=== PATIENT | male | born 1950 | race Caucasian/White ===

== ENCOUNTER 2019-01-07 11:08 | Inpatient (IN) | payer BC ==
[~2019-01-07] VITALS: Ht 172.7 cm; Wt 84.5 kg
[2019-01-07 11:23] LABS: EOSINOPHILS % (AUTO) 0.4 % (0.0-8.0); HEMATOCRIT 46.7 % (42-54); LYMPHOCYTES % (AUTO) 11.6 % (21.0-51.0); MEAN CORPUSCULAR HEMOGLOBIN 34.5 pg (27.0-33.0); MEAN CORPUSCULAR HGB CONC 33.3 g/dL (32.0-36.0); MEAN CORPUSCULAR VOLUME 103.7 fL (79-99); MONOCYTES % (AUTO) 6.4 % (3.0-13.0); NEUTROPHILS % (AUTO) 80.6 % (40.0-77.0); NUCLEATED RED BLOOD CELLS 0.1 % (0.0-0.19); PLATELET COUNT (AUTO) 193 K/uL (130-400); RED BLOOD CELL COUNT(AUTO) 4.51 MIL/uL (4.50-6.20); RED CELL DISTRIBUTION WIDTH 13.7 % (11.0-15.5); WHITE BLOOD COUNT (AUTO) 7.3 K/uL (4.8-10.8)
[2019-01-07 11:32] LABS: CREATININE 0.9 mg/dL (0.5-1.5); POTASSIUM 5.4 mmol/L (3.5-5.1)
[2019-01-07 11:52] LABS: ALBUMIN 3.5 g/dL (3.5-5.0); BILIRUBIN,TOTAL 0.9 mg/dL (0.2-1.0); TOTAL PROTEIN, SERUM 7.8 g/dL (6.0-8.3)
[2019-01-07] MEDS ORDERED: DILTIAZEM HCL 125 MG/25 ML VIAL IV ONE (11:52)
[2019-01-07] MEDS ORDERED: SODIUM CHLORIDE 0.9% 500ML 500 ML IV ONE (11:53)
[2019-01-07] MEDS ORDERED: SODIUM CHLORIDE 0.9% 100 ML IV ONE ×2 (11:53→13:37)
[2019-01-07 12:19] LABS: INR 0.95 (0.85-1.15); PARTIAL THROMBOPLASTIN TIME 28.2 SEC (26.3-35.5)
[2019-01-07] MEDS ORDERED: THIAMINE HCL 100 MG/ML 2ML VIAL ONE (13:36)
[2019-01-07 13:54] LABS: AMPHET/METH SCREEN,URINE NEGATIVE (NEGATIVE); BARBITURATE SCREEN, URINE NEGATIVE (NEGATIVE); BENZODIAZEPINES SCREEN,URINE NEGATIVE (NEGATIVE); CANNABINOID SCREEN,URINE NEGATIVE (NEGATIVE); COCAINE SCREEN,URINE NEGATIVE (NEGATIVE); OPIATE SCREEN,URINE NEGATIVE (NEGATIVE); PHENCYCLIDINE SCREEN,URINE NEGATIVE (NEGATIVE)
[2019-01-07] MEDS ORDERED: LORAZEPAM 2 MG/ML 1 ML VIAL ONE (14:24)
[2019-01-07] MEDS ORDERED: AMIODARONE HCL 50 MG/ML 3 ML VIAL ONE (15:17)
[2019-01-07] MEDS ORDERED: PHARMACY COMMUNICATION MISC PRN ×2 (16:15→16:45)
[2019-01-07] MEDS: THIAMINE HCL 100 MG, FOLIC ACID 1 MG, M.V.I. IV [ADULT] 10 ML in SODIUM CHLORIDE 0.9% 1... IV SCH ×2 (16:15→16:45)
[2019-01-07] MEDS ORDERED: CHLORDIAZEPOXIDE HCL 25 MG CAP PO PRN ×2 (16:15→16:45)
[2019-01-07] MEDS ORDERED: AMIODARONE HCL 900 MG in DEXTROSE 5%-WATER 500 ML IV SCH (16:15)
[2019-01-07] MEDS: SODIUM CHLORIDE 0.9% 1000ML 1,000 ML IV SCH ×2 (16:40→23:20)
[2019-01-07] MEDS ORDERED: AMIODARONE HCL 150 MG in DEXTROSE 5%-WATER 100 ML IV SCH (16:45)
[2019-01-07] MEDS ORDERED: ONDANSETRON HCL 4 MG/2 ML VIAL IV PRN (16:45)
[2019-01-07] MEDS ORDERED: LORAZEPAM 2 MG/ML 1 ML VIAL IVP PRN (16:45)
[2019-01-07] MEDS ORDERED: ACETAMINOPHEN 325 MG TAB PO PRN ×2 (16:45)
[2019-01-07] MEDS ORDERED: AMIODARONE HCL 150 MG in DEXTROSE 5%-WATER 100 ML IV PRN (16:45)
[2019-01-07] MEDS ORDERED: LACTULOSE 20 GM/30 ML UDCUP PO PRN (16:45)
[2019-01-07] MEDS ORDERED: SODIUM CHLORIDE 0.9% 1000ML 1,000 ML IV ONE ×2 (17:03→23:58)
[2019-01-07] MEDS ORDERED: ENOXAPARIN SODIUM 80 MG/0.8 ML SQ SCH ×2 (21:00)
[2019-01-07] MEDS: FAMOTIDINE/PF 20 MG/2 ML VIAL IV SCH (21:00)
[2019-01-08] MEDS ORDERED: SODIUM CHLORIDE 0.9% 100 ML IV ONE ×2 (01:34→11:24)
[2019-01-08] MEDS ORDERED: DILTIAZEM HCL 125 MG/25 ML VIAL IV ONE ×2 (01:34→11:24)
[2019-01-08] MEDS: SODIUM CHLORIDE 0.9% 1000ML 1,000 ML IV SCH (06:00)
[2019-01-08] MEDS ORDERED: ENOXAPARIN SODIUM 100 MG/1 ML SQ ONE (07:21)
[2019-01-08] MEDS ORDERED: SODIUM CHLORIDE 0.9% 1000ML 1,000 ML IV ONE (07:21)
[2019-01-08] MEDS ORDERED: CHLORDIAZEPOXIDE HCL 25 MG CAP ONE ×2 (07:40→09:47)
[2019-01-08] MEDS ORDERED: ONDANSETRON HCL 4 MG/2 ML VIAL ONE (07:45)
[2019-01-08] MEDS: FAMOTIDINE/PF 20 MG/2 ML VIAL IV SCH ×2 (09:00→20:35)
[2019-01-08] MEDS: FOLIC ACID 1 MG TABLET PO SCH (09:00)
[2019-01-08] MEDS: RIVAROXABAN 20 MG TABLET PO SCH (11:13)
[2019-01-08] MEDS ORDERED: LORAZEPAM 2 MG/ML 1 ML VIAL ONE ×3 (12:33→15:12)
[2019-01-08] MEDS: THIAMINE HCL 100 MG, FOLIC ACID 1 MG, M.V.I. IV [ADULT] 10 ML in SODIUM CHLORIDE 0.9% 1... IV SCH ×2 (16:15→17:53)
[2019-01-08 17:25] VITALS: BP 136/98
--- NOTE | 2019-01-08 17:26 | NUR ---
ARRIVAL TO FLOOR PT IS ALERT, STATES AND NAME BUT DOESN'T KNOW WHERE HE IS AT. PATIENT IS CALM. NOTED EMPTY BOTTLE OF LIQUOR IN BELONGINGS BAG. ALL BELONGINGS PLACED IN CLOSET. PCP AT BEDSIDE, SOFIA OPEN DOOR DENISE.
[2019-01-08] MEDS ORDERED: METO-409 PO (17:35)
[2019-01-08] MEDS ORDERED: METO-391 PO (17:35)
--- NOTE | 2019-01-08 17:47 | NUR ---
FRIENDS ARE AT BEDSIDE ASSISTING WITH ADMISSION QUESTIONARE. PATIENT IS CALM AT THIS TIME.
--- NOTE | 2019-01-08 17:47 | NUR ---
AMIODARONE GTT COMPLETED WITHIN MINUTES OF ARRIVAL TO FLOOR, ER NURSE STATES IT WAS STARTED 24 HRS AGO.
[2019-01-08] MEDS: DILTIAZEM HCL 125 MG/25 ML 125 MG in SODIUM CHLORIDE 0.9% 100 ML IV SCH (17:53)
[2019-01-08 19:59] VITALS: BP 138/92
[2019-01-08] MEDS ORDERED: LORAZEPAM 2 MG/ML 1 ML VIAL IVP PRN ×2 (20:00)
[2019-01-08] MEDS: AMIODARONE HCL 200 MG TABLET PO SCH (20:35)
[2019-01-08] MEDS: METOPROLOL TARTRATE 50 MG TAB PO SCH (20:35)
[2019-01-08 23:46] VITALS: BP 143/100
[2019-01-09] MEDS ORDERED: SODIUM CHLORIDE 0.9% 0 ML IV ONE (02:51)
[2019-01-09] MEDS: DILTIAZEM HCL 125 MG/25 ML 125 MG in SODIUM CHLORIDE 0.9% 100 ML IV SCH (03:05)
[2019-01-09 04:01] LABS: HEMATOCRIT 35.3 % (42-54); MEAN CORPUSCULAR HEMOGLOBIN 34.6 pg (27.0-33.0); MEAN CORPUSCULAR HGB CONC 33.6 g/dL (32.0-36.0); MEAN CORPUSCULAR VOLUME 103.1 fL (79-99); NUCLEATED RED BLOOD CELLS 0.1 % (0.0-0.19); PLATELET COUNT (AUTO) 117 K/uL (130-400); RED BLOOD CELL COUNT(AUTO) 3.43 MIL/uL (4.50-6.20); RED CELL DISTRIBUTION WIDTH 13.4 % (11.0-15.5); WHITE BLOOD COUNT (AUTO) 5.4 K/uL (4.8-10.8)
[2019-01-09 04:23] LABS: CREATININE 0.7 mg/dL (0.5-1.5); POTASSIUM 3.1 mmol/L (3.5-5.1)
--- NOTE | 2019-01-09 04:35 | NUR ---
Patient resting in bed. 1:1 sitter. Patient has intermittent confusion. Patient can state name and . Unable to answer any other questions appropriately. Patient has increasing restlessness, agitation, and tremors. Medicated twice for increased agitation per ETOH protocol. Medicated with Ativan because patient was refusing to take Po Librium. Patient is incontinent wearing a brief. Currently on Cardizem Drip. Patient remains in A-flutter 80-110. Heart has decreased from 130-140. Will continue to monitor.
[2019-01-09 04:45] VITALS: BP 128/87
--- NOTE | 2019-01-09 05:07 | NUR ---
Per Kayden Dawson Add magnesium to lab draw. Place patient on electrolyte replacement protocol.
[2019-01-09 05:14] LABS: MAGNESIUM 1.3 mg/dL (1.80-2.40)
[2019-01-09] MEDS ORDERED: POTASSIUM CHLORIDE 20MEQ/100ML 100 ML IV PRN ×2 (05:30)
[2019-01-09] MEDS ORDERED: LIDOCAINE HCL-MPF 1% 2ML VIAL IVP PRN (05:30)
[2019-01-09] MEDS: MAGNESIUM 2GM PREMIX 50ML 50 ML IV PRN (06:13)
[2019-01-09 07:00] VITALS: BP 132/82
[2019-01-09] MEDS: FOLIC ACID 1 MG TABLET PO SCH (07:26)
[2019-01-09] MEDS: RIVAROXABAN 20 MG TABLET PO SCH (07:26)
[2019-01-09] MEDS: METOPROLOL TARTRATE 50 MG TAB PO SCH ×2 (07:26→21:01)
[2019-01-09] MEDS: AMIODARONE HCL 200 MG TABLET PO SCH ×2 (07:26→21:01)
[2019-01-09] MEDS: FAMOTIDINE/PF 20 MG/2 ML VIAL IV SCH ×2 (07:27→21:01)
--- NOTE | 2019-01-09 07:50 | NUR ---
ASSESSMENT PT IS CALM RESTING IN BED, STATES HIS NAME AND WHEN ASKED, UNSURE ABOUT WHERE HE IS THOUGH. BREATHING PATTERN IS EVEN AND UNLABORED. COMPLETE BED BATH GIVEN BY NURSE AIDE, NURSE AIDE IS AT BEDSIDE. SIDE RAILS UP X4 DOOR AJAR BLINDS OPEN CALL LIGHT WITHIN REACH.
[2019-01-09] MEDS: PANTOPRAZOLE SODIUM 40 MG TABLET.DR PO SCH (08:08)
--- NOTE | 2019-01-09 08:26 | NUR ---
ALL AM MEDS GIVEN NO CHOKING NO GAGGING NOTED HOB UP AT 35 DEGREES AIDE AT BEDSIDE
--- NOTE | 2019-01-09 09:40 | NUR ---
FRIEND AT BEDSIDE MRS BROWN AT BEDSIDE.
[2019-01-09 11:00] VITALS: BP 116/77
[2019-01-09] MEDS: POTASSIUM CHLORIDE 10% ELIXIR 20 MEQ/15 ML UDCUP PO PRN ×2 (11:08→21:01)
--- NOTE | 2019-01-09 12:36 | NUR ---
HR VIA TELE AFLUT 70S CARDIZEM DOWN TO 10CC HR
--- NOTE | 2019-01-09 13:00 | NUR ---
HR AFLUTTER 60S CARDIZEM DOWN TO 5CC HR
[2019-01-09] MEDS: THIAMINE HCL 100 MG, FOLIC ACID 1 MG, M.V.I. IV [ADULT] 10 ML in SODIUM CHLORIDE 0.9% 1... IV SCH ×2 (15:26→16:04)
[2019-01-09 16:00] VITALS: BP 127/77
--- NOTE | 2019-01-09 17:54 | NUR ---
cm note met with patient and [facility] resides athome with girlfriend keith bolden. is independent with adls and with ambulation. no dme. no services. able to ed own personal care. states [facility] provides trasport as needed. dc plan is back [place]. Addendum: 01/09/19 at 1756 by JEANNIE HE CM Amended: Links added.
[2019-01-09 19:19] VITALS: BP 157/101
[2019-01-09 23:00] VITALS: BP 142/96
--- NOTE | 2019-01-10 02:19 | NUR ---
PATIENT ABLE TO ANSWER NAME AND . DOES NOT KNOW TIME OR MONTH. PATIENT FORGETFUL INTERMITTENT CONFUSION. INCONTINENT AND WEARING DIAPER. PATIENT CONTINUES TO RECEIVE CARDIZEM VIA IV. HR A-FLUTTER 110. SWELLING AND REDNESS TO RIGHT ARM FROM PREVIOUS IV IN ED. WILL CONTINUE TO MONITOR
[2019-01-10 03:45] LABS: BASOPHILS % (AUTO) 0.3 % (0.0-5.0); LYMPHOCYTES % (AUTO) 9.6 % (21.0-51.0); MEAN CORPUSCULAR HEMOGLOBIN 35.5 pg (27.0-33.0); MEAN CORPUSCULAR HGB CONC 34.1 g/dL (32.0-36.0); MONOCYTES % (AUTO) 6.8 % (3.0-13.0); NEUTROPHILS % (AUTO) 82.3 % (40.0-77.0); PLATELET COUNT (AUTO) 87 K/uL (130-400); RED BLOOD CELL COUNT(AUTO) 3.37 MIL/uL (4.50-6.20); RED CELL DISTRIBUTION WIDTH 13.5 % (11.0-15.5); WHITE BLOOD COUNT (AUTO) 5.1 K/uL (4.8-10.8)
[2019-01-10 04:01] LABS: CREATININE 0.6 mg/dL (0.5-1.5); POTASSIUM 3.3 mmol/L (3.5-5.1)
[2019-01-10 04:57] VITALS: BP 138/88
[2019-01-10] MEDS: POTASSIUM CHLORIDE 10% ELIXIR 20 MEQ/15 ML UDCUP PO PRN (06:04)
[2019-01-10] MEDS: PANTOPRAZOLE SODIUM 40 MG TABLET.DR PO SCH (06:04)
[2019-01-10] MEDS ORDERED: RIVA20TA PO (06:10)
[2019-01-10] MEDS ORDERED: AMIO200T44 PO (06:10)
[2019-01-10] MEDS ORDERED: LOSA50TA2 PO (06:10)
[2019-01-10 07:00] VITALS: BP 147/99
[2019-01-10] MEDS: METOPROLOL TARTRATE 50 MG TAB PO SCH ×2 (08:30→20:16)
[2019-01-10] MEDS: FOLIC ACID 1 MG TABLET PO SCH (08:30)
[2019-01-10] MEDS: AMIODARONE HCL 200 MG TABLET PO SCH ×2 (08:31→20:15)
[2019-01-10] MEDS: LOSARTAN 50 MG TABLET PO SCH (08:31)
[2019-01-10] MEDS: RIVAROXABAN 20 MG TABLET PO SCH (08:31)
[2019-01-10] MEDS: FAMOTIDINE/PF 20 MG/2 ML VIAL IV SCH ×2 (08:32→20:17)
[2019-01-10] MEDS ORDERED: LOSARTAN 50 MG TABLET PO SCH (09:00)
[2019-01-10] MEDS: DILTIAZEM HCL 125 MG/25 ML 125 MG in SODIUM CHLORIDE 0.9% 100 ML IV SCH (09:05)
[2019-01-10 11:00] VITALS: BP 133/97
[2019-01-10] MEDS ORDERED: METOPROLOL TARTRATE 25 MG TAB PO SCH (14:00)
[2019-01-10] MEDS: POTASSIUM CHLORIDE 20 MEQ ERTAB PO PRN ×2 (14:43→20:17)
--- NOTE | 2019-01-10 14:45 | NUR ---
FEMALE VISITOR AT BEDSIDE CONVERSING WITH PT.
[2019-01-10 16:00] VITALS: BP 138/94
[2019-01-10 19:53] VITALS: BP 125/96
[2019-01-11] VITALS (9 sets, daily range): BP systolic 116–155; BP diastolic 78–124
--- NOTE | 2019-01-11 04:25 | NUR ---
HEART RATE SUSTAINING IN 120 T0 130, HEART CLINIC PAGED 0500-DR. BLACK RETURNED CALL, APPRAISED OF PATIENTS HEART RATE AND CURRENT MEDS, ORDERS RECEIVED AND PLACED IN COMPUTER.
[2019-01-11] MEDS: POTASSIUM CHLORIDE 20 MEQ ERTAB PO PRN ×3 (04:57→20:17)
[2019-01-11] MEDS ORDERED: DILTIAZEM HCL 5 MG/ML 10 ML VIAL IV ONE (05:14)
[2019-01-11] MEDS: DILTIAZEM HCL 5 MG/ML 10 ML VIAL IV SCH ×2 (05:49→06:30)
[2019-01-11] MEDS: DILTIAZEM HCL 125 MG/25 ML 125 MG in SODIUM CHLORIDE 0.9% 100 ML IV PRN ×3 (05:51→23:01)
[2019-01-11] MEDS: PANTOPRAZOLE SODIUM 40 MG TABLET.DR PO SCH (06:39)
[2019-01-11] MEDS ORDERED: DILTIAZEM HCL 5 MG/ML 10 ML VIAL IV SCH (06:45)
[2019-01-11] MEDS: RIVAROXABAN 20 MG TABLET PO SCH (09:49)
[2019-01-11] MEDS: LOSARTAN 50 MG TABLET PO SCH (09:49)
[2019-01-11] MEDS: FAMOTIDINE/PF 20 MG/2 ML VIAL IV SCH ×2 (09:50→20:19)
[2019-01-11] MEDS: AMIODARONE HCL 200 MG TABLET PO SCH ×2 (09:50→20:18)
[2019-01-11] MEDS: METOPROLOL TARTRATE 50 MG TAB PO SCH ×2 (09:51→20:19)
--- NOTE | 2019-01-11 12:40 | NUR ---
DR. QUIÑONEZ IN ROOM SPEAKING WITH PT. RE:PLAN OF CARE AND ANSWERING PT.'S QUESTIONS. PT. VERBALIZED UNDERSTANDING.
[2019-01-11] MEDS ORDERED: METOPROLOL TARTRATE 25 MG TAB PO SCH (13:00)
--- NOTE | 2019-01-11 14:30 | NUR ---
SUBSTANCE ABUSE RESOURCES Wendy met with pt and amor. Per amor, she is wanting pt placed in detox or rehab. Amor states that she is working with pt's family in [place] to get pt back to [facility] [place], but until arrangement made, she wants him placed in rehab. Explained to amor that pt must be willing to go to rehab and he must be the one calling and speaking to facilities regarding placement. Pt stated that he was in agreement with amor that they must part ways, but pt never answered me with regards to wanting rehad placement. Pt never voiced willingness to go to rehab. WENDY provided pt and leslylord with [facility] and resource list for them to review and call. Per pt, after dc, he is hoping to leave to [facility] [place]. CM aware of above
[2019-01-12 03:26] VITALS: BP 132/96
[2019-01-12 04:00] LABS: HEMATOCRIT 36.9 % (42-54); MEAN CORPUSCULAR HEMOGLOBIN 36.1 pg (27.0-33.0); MEAN CORPUSCULAR HGB CONC 34.7 g/dL (32.0-36.0); MEAN CORPUSCULAR VOLUME 104.1 fL (79-99); PLATELET COUNT (AUTO) 123 K/uL (130-400); RED BLOOD CELL COUNT(AUTO) 3.54 MIL/uL (4.50-6.20); RED CELL DISTRIBUTION WIDTH 13.3 % (11.0-15.5); WHITE BLOOD COUNT (AUTO) 7.9 K/uL (4.8-10.8)
[2019-01-12 04:13] LABS: CREATININE 0.8 mg/dL (0.5-1.5); MAGNESIUM 1.4 mg/dL (1.80-2.40); PHOSPHORUS 2.5 mg/dL (2.5-4.9); POTASSIUM 3.8 mmol/L (3.5-5.1)
[2019-01-12] MEDS: MAGNESIUM 2GM PREMIX 50ML 50 ML IV PRN (04:46)
[2019-01-12] MEDS: POTASSIUM CHLORIDE 20 MEQ ERTAB PO PRN ×2 (06:13→08:32)
[2019-01-12] MEDS: PANTOPRAZOLE SODIUM 40 MG TABLET.DR PO SCH (06:13)
[2019-01-12 07:41] VITALS: BP 143/109
[2019-01-12] MEDS: AMIODARONE HCL 200 MG TABLET PO SCH (08:31)
[2019-01-12] MEDS: METOPROLOL TARTRATE 50 MG TAB PO SCH (08:31)
[2019-01-12] MEDS: FAMOTIDINE/PF 20 MG/2 ML VIAL IV SCH (08:32)
[2019-01-12] MEDS: LOSARTAN 50 MG TABLET PO SCH (08:32)
[2019-01-12] MEDS: RIVAROXABAN 20 MG TABLET PO SCH (08:33)
--- NOTE | 2019-01-12 10:40 | NUR ---
PATIENT SIGNED AMA FORM. EXPLAINED TO PATIENT THE RISKS AND CONSEQUENCES OF LEAVING AMA THAT INCLUDE WI, STROKE, AND/OR . PATIENT VERBALIZED UNDERSTANDING. PIV REMOVED. TIP WAS INTACT. TELE PACK REMOVED AND RETURNED. ALL BELONGINGS WERE PACKED. DR. QUIÑONEZ IS AWARE OF THIS.
--- NOTE | 2019-01-12 10:42 | NUR ---
Rounds Completed patient round. Patient states would like to leave within the hour. Informed patient PMD has not rounded yet, but CM will inform PMD of patient's request. Case discussed with PMD. Patient on Cardizem gtt and HR not controlled. Per PMD, patient is not safe for discharge. CM notified patient of this. Patient stated no longer wanting to stay and wants to leave against medical advice. Informed patient that medication is still required to control HR. Patient asked about prescriptions for this. Informed patient of procedure w/ AMA and that PMD does not write for prescriptions since medication adjustments still need to be made. Verbalized understanding. Encouraged patient to see outpatient primary physician for any medical needs or come back to ER. Verbalized understanding. OSMAR Diane at bedside and witnessed conversation. Patient wanting tele pack and IVs out. Informed patient once patient signs the AMA forms, then OSMAR Diane will be able to discontinue any IV and telepack.
== END 2019-01-12 11:05 | disposition left against medical advice (07) | DRG 309 ==
LOC: EDH 11:08 → EDHIP 16:40 → 2DH 01-08 17:21
PROVIDERS: ADMIT Internal Medicine; ATTEND Internal Medicine
DX: I48.92 Unspecified atrial flutter (principal); F10.239 Alcohol dependence with withdrawal, unspecified; D68.59 Other primary thrombophilia; N40.0 Benign prostatic hyperplasia without lower urinary tract symptoms; I10 Essential (primary) hypertension; I48.91 Unspecified atrial fibrillation; D53.9 Nutritional anemia, unspecified; Y90.6 Blood alcohol level of 120-199 mg/100 ml; E78.5 Hyperlipidemia, unspecified; F41.9 Anxiety disorder, unspecified; I45.89 Other specified conduction disorders; Z79.01 Long term (current) use of anticoagulants; Z79.899 Other long term (current) drug therapy; Z87.891 Personal history of nicotine dependence
CPT/HCPCS: 36415; 70450; 71045; 80048; 80053; 80305; 82550; 83735; 83874; 83880; 84100; 84443; 84484; 85025; 85027; 85610; 85730; 93005; 99291; G0378; G0480; J0282; J1650; J2060; J2405; J3411; J3475; J3480; J3490; J7030; J7040; J7060

== ENCOUNTER 2021-06-06 10:30 | Day surgery (SDC) | payer BC ==
[2021-05-31 12:51] LABS: BASOPHILS % (AUTO) 0.7 % (0.0-5.0); EOSINOPHILS % (AUTO) 0.8 % (0.0-8.0); HEMATOCRIT 44.2 % (42-54); LYMPHOCYTES % (AUTO) 14.9 % (21.0-51.0); MEAN CORPUSCULAR HEMOGLOBIN 29.2 pg (27.0-33.0); MEAN CORPUSCULAR HGB CONC 32.1 g/dL (32.0-36.0); MEAN CORPUSCULAR VOLUME 90.9 fL (79-99); MONOCYTES % (AUTO) 6.9 % (3.0-13.0); NEUTROPHILS % (AUTO) 76.5 % (40.0-77.0); PLATELET COUNT (AUTO) 179 K/uL (130-400); RED BLOOD CELL COUNT(AUTO) 4.86 MIL/uL (4.50-6.20); RED CELL DISTRIBUTION WIDTH 12.9 % (11.0-15.5); WHITE BLOOD COUNT (AUTO) 10.2 K/uL (4.8-10.8)
[2021-05-31 13:01] LABS: CREATININE 0.8 mg/dL (0.5-1.5); POTASSIUM 4.6 mmol/L (3.5-5.1)
[2021-05-31 13:02] LABS: PROTHROMBIN TIME 10.9 SEC (9.6-11.6)
[2021-05-31 13:04] LABS: PARTIAL THROMBOPLASTIN TIME 29.5 SEC (26.3-35.5)
[2021-05-31 13:14] LABS: APPEARANCE,URINE TURBID (CLEAR); BILIRUBIN,URINE NEGATIVE (NEGATIVE); COLOR,URINE YELLOW (YELLOW); GLUCOSE, URINE (UA) NEGATIVE (NEGATIVE); KETONES,URINE NEGATIVE (NEGATIVE); LEUKOCYTE ESTERASE ,URINE MODERATE (NEGATIVE); NITRATE,URINE NEGATIVE (NEGATIVE); OCCULT BLOOD,URINE MODERATE (NEGATIVE); PROTEIN,URINE 100 mg/dL (NEGATIVE); UROBILINOGEN,URINE 0.2 mg/dL (0.2-1.0)
[2021-05-31 13:27] LABS: BACTERIA,URINE Few /HPF (None Seen); RBC,URINE 0-1 /HPF (0-1); SQUAMOUS EPITHELIAL CELL,UR Rare /HPF (0-2)
[2021-06-06] VITALS (20 sets, daily range): BP systolic 134–214; BP diastolic 81–115
[~2021-06-06] VITALS: Ht 182.9 cm; Wt 84.6 kg
[~2021-06-06 10:30] MED LIST: CEFTRIAXONE 1G VIAL ONE; LACTATED RINGERS 1000ML 1,000 ML IV ONE; LEVO750T46 PO; METO-409 PO; RIVA20TA PO
[2021-06-06] MEDS ORDERED: LEVO500T90 PO (10:41)
[2021-06-06] MEDS ORDERED: CEFTRIAXONE 1G VIAL IVP SCH (11:00)
[2021-06-06] MEDS ORDERED: GENTAMICIN SULFATE IV SCH (11:00)
[2021-06-06] MEDS ORDERED: [UNRECOGNIZED DRUG - OTHER] IV SCH (11:00)
[2021-06-06] MEDS ORDERED: GLYCOPYRROLATE 1 MG/5 ML SYRINGE ONE (14:24)
[2021-06-06] MEDS ORDERED: SUCCINYLCHOLINE 200MG/10ML SYR ONE ×2 (14:24→14:25)
[2021-06-06] MEDS ORDERED: NEOSTIGMINE 5MG/5ML SYR IV ONE (14:24)
[2021-06-06] MEDS ORDERED: MIDAZOLAM HCL 1 MG/ML 2ML VIAL ONE (14:24)
[2021-06-06] MEDS ORDERED: DEXAMETHASONE SOD PHOSPHATE 10MG/ML 1ML VIAL ONE (14:24)
[2021-06-06] MEDS ORDERED: LIDOCAINE PF 100MG/5ML (2%) SYRINGE 5ML ONE ×2 (14:24→14:25)
[2021-06-06] MEDS ORDERED: PROPOFOL 10 MG/ML 20ML VIAL IV ONE ×2 (14:24→14:33)
[2021-06-06] MEDS ORDERED: FENTANYL CITRATE PF 50 MCG/1 ML 2ML VIAL ONE ×2 (14:25→15:08)
[2021-06-06] MEDS ORDERED: ROCURONIUM 10MG/1ML SYR 10 MG/ML ML ONE (14:27)
[2021-06-06] MEDS ORDERED: LABETALOL 20MG SYG IV ONE (14:55)
[2021-06-06] MEDS ORDERED: ONDANSETRON 4MG INJ ONE (16:15)
[2021-06-06] MEDS ORDERED: HYDRALAZINE 20MG/ML VIAL ONE (18:00)
== END 2021-06-06 19:40 | disposition home or self-care (01) ==
LOC: DAH 10:30
PROVIDERS: ATTEND Urology
DX: N40.1 Benign prostatic hyperplasia with lower urinary tract symptoms (principal); Z20.822 Contact with and (suspected) exposure to COVID-19; N39.498 Other specified urinary incontinence; R33.8 Other retention of urine; I10 Essential (primary) hypertension; Z72.89 Other problems related to lifestyle; Z79.01 Long term (current) use of anticoagulants
CPT/HCPCS: 36415; 52648; 71045; 80048; 81001; 85025; 85610; 85730; 87088; 87635; 93005; A4215; A4221; A4222; A4223; A4354; A4358; A4600; A4663 ×2; A4930; A6260; C1758; C9803; J0330 ×2; J0360; J0696; J1100; J1580; J2001 ×2; J2250; J2405; J2704 ×2; J2710; J3010 ×2; J3490; J7120 ×2